=== PATIENT | female | born 1940 | race Caucasian/White ===

== ENCOUNTER → 2016-08-30 | Outpatient (CLI) | payer MEDICARE ==
[~2016-08-30] MED LIST: GLUCOPHAGE-DPS500 MG PO; NAPROSYN DPS500 MG PO; NEURONTIN DPS100 MG PO; OXY IR DPS5 MG PO; OYSCO 500+D TA1 EACH PO; PRAVACHOL10 MG PO; SENOKOT S1 TAB PO; TYLENOL DPS325 MG PO; TYLENOL EXTRA500 M1 PO; ULTRAM DPS50 MG PO; VESICARE10 MG PO; VITAMIN D31000 UNIT PO; ZESTRIL DPS10 MG PO
== END | disposition home or self-care (01) ==
LOC: RAD.S 14:59
DX: M54.16 Radiculopathy, lumbar region (principal); M51.17 Intervertebral disc disorders with radiculopathy, lumbosacral region; M47.896 Other spondylosis, lumbar region; M43.17 Spondylolisthesis, lumbosacral region; M48.06 Spinal stenosis, lumbar region; M41.86 Other forms of scoliosis, lumbar region; Z87.898 Personal history of other specified conditions